=== PATIENT | female | born 1985 | race Caucasian/White ===

== ENCOUNTER 2021-08-11 17:15 | Emergency (ER) | payer MEDICAID ==
[2021-08-11] MEDS ORDERED: ARIPiprazole 10 MG Tab PO ONE (18:50)
[2021-08-11] MEDS ORDERED: Potassium Chloride 20 MEQ Tab.ER PO ONE (18:50)
== END 2021-08-11 19:24 | disposition home or self-care (01) ==
LOC: JP.ED 17:15
DX: F31.9 Bipolar disorder, unspecified (principal); R00.0 Tachycardia, unspecified; F15.10 Other stimulant abuse, uncomplicated; F20.1 Disorganized schizophrenia; E87.6 Hypokalemia; I10 Essential (primary) hypertension; E03.9 Hypothyroidism, unspecified
CPT/HCPCS: 36415; 80048; 80305-QW; 80307; 81025; 84439; 84443; 85025; 93005; 93010; 99284; 99285-25; A9270-GY